=== PATIENT | female | born 1980 | race African-American/Black ===

== ENCOUNTER 2017-07-30 00:11 | Emergency (ER) | payer OTHER ==
[2017-07-30 00:46] LABS: URINE HCG POC HCG NEGATIVE (Negative)
[2017-07-30 00:49] LABS: BASO % 0 % (0-3); EOS % 0 % (0-3); HEMATOCRIT 37.3 % (36.0-47.0); HEMOGLOBIN 12.5 g/dL (12.0-15.5); LYMPH # 0.6 x10^3/uL (1.0-4.8); LYMPH % 3 % (24-48); MEAN CORPUSCULAR HEMOGLOBIN 30 pg (25-35); MEAN CORPUSCULAR HGB CONC 34 g/dL (31-37); MEAN CORPUSCULAR VOLUME 88 fL (79-100); MONO # 1.9 x10^3/uL (0.0-1.1); MONO % 8 % (0-9); NEUT # 20.4 x10^3uL (1.8-7.7); NEUT % 89 % (31-73); PLATELET COUNT 161 x10^3/uL (140-400); RED BLOOD COUNT 4.25 x10^6/uL (3.50-5.40); RED CELL DISTRIBUTION WIDTH 13.2 % (11.5-14.5); WHITE BLOOD COUNT 22.9 x10^3/uL (4.0-11.0)
[2017-07-30 00:50] LABS: ADD MAN DIFF? YES
[2017-07-30 00:51] LABS: BILIRUBIN,URINE NEGATIVE (NEG); CLARITY,URINE CLOUDY; GLUCOSE,URINE NEGATIVE (NEG); NITRITE,URINE NEGATIVE (NEG); PH,URINE 6.5; PROTEIN,URINE 30 mg/dL (NEG-TRACE)
[2017-07-30] MEDS ORDERED: CONTRAST GIVEN. MC (01:00)
[2017-07-30 01:04] LABS: NEG OBC SER NEG; POS OBC SER POS; PREG TEST PT QUAL NEGATIVE (NEG)
[2017-07-30 01:05] LABS: ANION GAP 11 (6-14); BACTERIA,URINE FEW /HPF (0-FEW); BLOOD UREA NITROGEN 12 mg/dL (7-20); BUN/CREATININE RATIO 13 (6-20); CALCIUM 8.8 mg/dL (8.5-10.1); CARBON DIOXIDE 22 mmol/L (21-32); CHLORIDE 103 mmol/L (98-107); COLOR,URINE RED; CREATININE 0.9 mg/dL (0.6-1.0); GFR 70.1; GLUCOSE 120 mg/dL (70-99); POTASSIUM 3.2 mmol/L (3.5-5.1); RBC,URINE TNTC /HPF (0-2); SODIUM 136 mmol/L (136-145); SQUAMOUS EPITHELIAL CELL,UR FEW /LPF; TRICHOMONAS,URINE PRESENT; WBC,URINE TNTC /HPF (0-4)
[2017-07-30 01:11] LABS: ALBUMIN 3.6 g/dL (3.4-5.0); ALBUMIN/GLOBULIN RATIO 0.8 (1.0-1.7); ALK PHOS 90 U/L (46-116); ALT (SGPT) 17 U/L (14-59); AST (SGOT) 15 U/L (15-37); LIPASE 91 U/L (73-393); TOTAL BILIRUBIN 0.8 mg/dL (0.2-1.0)
[2017-07-30 01:16] LABS: FREE T4 1.14 ng/dL (0.76-1.46)
[2017-07-30 01:16] LABS: THYROID STIM HORMONE (TSH) 0.731 uIU/mL (0.358-3.74)
[2017-07-30 01:18] LABS: CREATINE KINASE 73 U/L (26-192)
[2017-07-30 01:19] LABS: CKMB MASS < 0.5 ng/mL (0.0-3.6)
[2017-07-30] MEDS: IOHEXOL 300 MG/ML 100ML VIAL. IV (01:38)
[2017-07-30 01:46] LABS: % BANDS 11 % (0-9); % LYMPHS 1 % (24-48); % MONOS 4 % (0-10); % SEGS 84 % (35-66); PLT ESTIMATE ADEQUATE (ADEQUATE); TOXIC VACUOLATION SLIGHT
[2017-07-30] MEDS: MORPHINE SULFATE 4 MG/ML DISP.SYRIN. IV (02:11)
[2017-07-30] MEDS: POTASSIUM CHLORIDE 20 MEQ TABLET.ER. PO (02:11)
== END 2017-07-30 04:05 | disposition home or self-care (01) ==
LOC: ER 00:11
DX: S39.012A Strain of muscle, fascia and tendon of lower back, initial encounter (principal); K21.9 Gastro-esophageal reflux disease without esophagitis; Z90.49 Acquired absence of other specified parts of digestive tract; Z98.51 Tubal ligation status; Z88.5 Allergy status to narcotic agent; X58.XXXA Exposure to other specified factors, initial encounter; Y93.89 Activity, other specified; Y99.8 Other external cause status; Y92.89 Other specified places as the place of occurrence of the external cause
CPT/HCPCS: 36415; 74177; 80053; 81001; 81025; 82553; 83690; 83735; 84439; 84443; 84703; 85007; 85025; 87086; 93005; 96365; 96375; 99285-25; J0690; J2270; Q9967